=== PATIENT | female | born 1995 | race American Indian/Alaskan Native ===

== ENCOUNTER 2020-03-06 19:07 | Emergency (ER) | payer SELFPAY | END 2020-03-06 21:00 | LOC: ED 19:07 | DX: R10.9 Unspecified abdominal pain (principal); Z53.21 Procedure and treatment not carried out due to patient leaving prior to being seen by health care provider ==

== ENCOUNTER 2020-08-11 17:20 | Outpatient (CLI) | payer MEDICAID ==
[2020-08-11 17:53] VITALS: BP 128/66
[2020-08-11] MEDS ORDERED: TERBUTALINE 1 MG/1 ML INJ SUB-Q SCH (18:00)
[2020-08-11 18:02] LABS: Bacteria,Urine 2+ /HPF (Negative); Bilirubin,Urine NEG (Negative); Blood,Urine NEG (Negative); Color,Urine Yellow (Yellow); Mucus,Urine 2+ /HPF; Urobilinogen,Urine < 2.0 mg/dL (<2.0)
[2020-08-11] MEDS ORDERED: LACTATED RINGERS 1,000 ML IV SCH (18:30)
== END 2020-08-11 20:10 | disposition home or self-care (01) ==
LOC: TRG 17:20 → APU 17:21 → TRG 20:10
PROVIDERS: ATTEND Obstetrics & Gynecology
DX: O62.9 Abnormality of forces of labor, unspecified (principal); O99.323 Drug use complicating pregnancy, third trimester; F12.90 Cannabis use, unspecified, uncomplicated; O99.333 Smoking (tobacco) complicating pregnancy, third trimester; F17.210 Nicotine dependence, cigarettes, uncomplicated; Z3A.32 32 weeks gestation of pregnancy
CPT/HCPCS: 36415; 59025; 81001; 82731; 87086; 96360; 96361; 96372; J3105; J7120

== ENCOUNTER 2020-08-19 12:55 | Outpatient (CLI) | payer MEDICAID ==
[2020-08-19 13:29] VITALS: BP 137/80
--- NOTE | 2020-08-19 17:41 | Ultrasound Report ---
ULTRASOUND BIOPHYSICAL PROFILE INDICATION / CLINICAL INFORMATION: evaluate well being. COMPARISON: None available. FINDINGS: BREATHING MOVEMENT = 2 GROSS BODY MOVEMENT = 2 TONE = 2 QUALITATIVE AMNIOTIC FLUID VOLUME = 2 TOTAL BIOPHYSICAL SCORE = 12/02 AMNIOTIC FLUID INDEX (cm) = not measured PRESENTATION: Cephalic. HEART RATE (beats per minute): 149 IMPRESSION: 1. biophysical profile = 12/02 Signer Name: Jesika Bruner MD Signed: 08/19/2020 5:37 PM Workstation Name: [id number]
== END 2020-08-19 16:16 | disposition home or self-care (01) ==
LOC: TRG 12:55 → APU 12:57 → TRG 16:16
PROVIDERS: ATTEND Obstetrics & Gynecology
DX: O36.8130 Decreased fetal movements, third trimester, not applicable or unspecified (principal); Z3A.33 33 weeks gestation of pregnancy
CPT/HCPCS: 59025; 76819

== ENCOUNTER 2020-09-29 19:03 | Inpatient (IN) | payer MEDICAID ==
[2020-09-29] MEDS ORDERED: NalbUPHINE 10 MG/1 ML INJ IV PRN ×2 (19:33→22:33)
[2020-09-29] MEDS ORDERED: MINERAL OIL 30 ML ORAL LIQD PO PRN (19:33)
[2020-09-29] MEDS ORDERED: fentaNYL 100 MCG/2 ML INJ IV PRN (19:33)
[2020-09-29] MEDS ORDERED: ACETAMINOPHEN 325 MG TAB PO PRN (19:33)
[2020-09-29] MEDS ORDERED: LIDOCAINE (2%) 20 MG/1 ML VIAL 20 ML MDV INFILTRATI ONE (19:33)
[2020-09-29] MEDS ORDERED: TERBUTALINE 1 MG/1 ML INJ SUB-Q PRN (19:33)
[2020-09-29] MEDS ORDERED: ePHEDrine SULFATE 50 MG/1 ML INJ IV PRN (19:33)
[2020-09-29] MEDS ORDERED: AMPICILLIN/NS 2 GM/100 ML 2 GM/100 ML BAG IV ONE (19:33)
--- NOTE | 2020-09-29 19:59 | History and Physical Report ---
History of Present Illness Date of examination: 09/29/20 Chief complaint: SROM and ctx History of present illness: EDC Confirmation: 10/02/2020 Past History : 2 Term Births: 1 Premature Births: 0 Living Children: 1 Para: 1 Mult. Births: 0 Prev : 0 Aborta: 0 Elect. Ab: 0 Spont. Ab: 0 Ectopics: 0 # 1 Delivery date: 06/21/2010 Weeks Gestation: Term labor: no Delivery type: Delivery location: [place] Infant Sex: Male weight: 5-12 Comments: Had issues with pelvic pain and could not stand. 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 % Sun Exposure: rarely Dietary Counseling: pn yes PAP Smear History: Date of Last PAP Smear: 05/15/2015 Results: Normal, per pt Past Medical History: Reviewed history and no changes required: Negative Past Medical History Past Surgical History: Reviewed history and no changes required: negative Past Medical History Anesthesia Complications: negative Anemia: negative Autoimmune Disorder: negative Bleeding Disorder: negative Blood Transfusions: negative Breast Disease: negative Diabetes: negative Heart Disease: negative Hypertension: negative Hepatitis/Liver Disease: negative Kidney Disease/UTI: negative Neurologic/Epilepsy/Migraines: negative Phlebitis/Varicosities: negative Psychiatric: negative Pulmonary Disease/Asthma: negative Thyroid Disease: negative Hospitalizations: negative 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 of genital herpes: no Partner hx. of genital herpes: no Rash, Viral, or Febrile illness since last LMP? no Varicella/Chicken Pox Status: Previous Disease TB Risk: no Genetic History Congenital Heart Defect: Mom: no Dad: no John Disease: Mom: no Dad: no Thalassemia Mom: no Dad: no Neural Tube Defect Mom: no Dad: no Down's Syndrome Mom: no Dad: no Fahad-Sachs Mom: no Dad: no Sickle Cell Disease/Trait Mom: no Dad: no Hemophilia Mom: no Dad: no Muscular Dystrophy Mom: no Dad: no Cystic Fibrosis Mom: no Dad: no [place] Chorea Mom: no Dad: no Mental Retardation Mom: no Dad: no Fragile X Mom: no Dad: no Other Genetic/Chromosomal Disorder Mom: no Dad: no Child w/other defect Mom: no Dad: no Enviromental Exposures Xray Exposure: no Medication, drug, or alcohol use since LMP: yes Chemical/Other Exposure: no Exposure to Cat Liter: no Hx of Parvovirus (Fifth Disease): no Occupational Exposure to Children: none Current Allergies (reviewed today): * SEAFOOD (Critical) Past History Past Medical History: other (see HPI) Past Surgical History: other (see HPI) 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) Family/Genetic History: other (see HPI) - Obstetrical History Expected Date of Delivery: 10/02/20 Actual Gestation: 39 Week(s) 4 Day(s) : 2 Para: 1 Hx # Term Pregnancies: 1 Number of Pregnancies: 0 Spontaneous Abortions: 0 Induced : 0 Number of Living Children: 1 Medications and Allergies Allergies Allergy/AdvReac Type Severity Reaction Status Date / Time shellfish derived Allergy Anaphylaxis Verified 03/06/20 20:17 Active Meds: Active Medications Acetaminophen (Acetaminophen 325 Mg Tab) 650 mg PO Q4H PRN PRN Reason: Pain, Mild (1-3) Ephedrine Sulfate (Ephedrine Sulfate 50 Mg/1 Ml Inj) 10 mg IV Q2M PRN PRN Reason: Hypotension Fentanyl (Fentanyl 100 Mcg/2 Ml Inj) 100 mcg IV Q2H PRN PRN Reason: Pain,Severe (7-10) LABOR PAIN Oxytocin/Sodium Chloride (Pitocin/Ns 30 Unit/500ml) 30 units in 500 mls @ 2 mls/hr IV TITR ALO; Protocol Lactated Ringer's (Lactated Ringers) 1,000 mls @ 125 mls/hr IV DIRECT ALO Oxytocin/Sodium Chloride (Pitocin/Ns 30 Unit/500ml) 30 units in 500 mls @ 40 mls/hr IV TITR ALO; Protocol Ampicillin Sodium (Ampicillin/Ns 2 Gm/100 Ml) 2 gm in 100 mls @ 100 mls/hr IV ONCE ONE; Protocol Stop: 09/29/20 20:32 Ampicillin Sodium (Ampicillin/Ns 1 Gm/50 Ml) 1 gm in 50 mls @ 100 mls/hr IV Q4H ALO; Protocol Mineral Oil (Mineral Oil 30 Ml Oral Liqd) 30 ml PO QHS PRN PRN Reason: Constipation Nalbuphine HCl (Nalbuphine 10 Mg/1 Ml Inj) 10 mg IV Q2H PRN PRN Reason: Pain, Moderate (4-6) Ondansetron HCl (Ondansetron 4 Mg/2 Ml Inj) 4 mg IV Q8H PRN PRN Reason: Nausea And Vomiting Terbutaline Sulfate (Terbutaline 1 Mg/1 Ml Inj) 0.25 mg SUB-Q ONCE PRN PRN Reason: Hyperstimulation/Hypertonicity Review of Systems All systems: negative - Vital Signs Vital signs: Vital Signs Pulse BP 77 139/84 09/29/20 19:13 09/29/20 19:13 Temp Pulse Resp BP Pulse Ox 77 139/84 09/29/20 19:13 09/29/20 19:13 - Physical Exam Breasts: Positive: normal Cardiovascular: Regular rate Lungs: Positive: Clear to auscultation, Normal air movement Abdomen: Positive: normal appearance, soft Genitourinary (Female): Positive: normal external genitalia, normal perenium Vulva: both: normal Vagina: Positive: normal moisture Uterus: Positive: normal size, normal contour Extremities: Positive: normal Deep Tendon Reflex Grade: Normal +2 - Obstetrical FHR: category 1 Uterine Contraction Monitor Mode: External Cervical Dilatation: 2 (by visitor services coordinator) Uterine Contraction Pattern: Regular Uterine Tone Measurement Phase: Contraction Uterine Contraction Intensity: Moderate Results All other labs normal. Assessment and Plan 25y/o @ 39+4 by 2nd trimester u/s @ 22wks, presented with SROM- mec fluid and ctx rates 9/10 on the pain scale. GBS +. - Patient Problems (1) H/O trichomonal vaginitis Current Visit: Yes Status: Acute Plan to address problem: + trich /6, treated 09/05, zoya sent / an not yet resulted. (2) Hx of cannabis abuse Current Visit: Yes Status: Acute Plan to address problem: UDS (3) 39 weeks gestation of Current Visit: Yes Status: Acute (4) GBS (group B Streptococcus carrier), +RV culture, currently Current Visit: Yes Status: Acute Plan to address problem: amp q4hr until delivery (5) SROM (spontaneous rupture of membranes) Current Visit: Yes Status: Acute Plan to address problem: mec - NICU present for delivery Limit SVE temp per protocol
[2020-09-29] MEDS ORDERED: OXYTOCIN DRIP 30 UNITS/500 ML BAG IV SCH ×2 (20:00)
[2020-09-29] MEDS: LACTATED RINGERS 1,000 ML IV SCH ×2 (21:20→22:36)
[2020-09-29] MEDS ORDERED: FAMOTIDINE 20 MG/2 ML INJ IV ONE (22:01)
[2020-09-29 22:33] LABS: Hematocrit 34.4 % (30.3-42.9); Hemoglobin 11.3 gm/dl (10.1-14.3); Mean Corpuscular HGB Conc 33 % (30-34); Mean Corpuscular Volume 88 fl (79-97); Platelet Count 236 K/mm3 (140-440); Red Blood Count 3.92 M/mm3 (3.65-5.03); Red Cell Distribution Width 13.5 % (13.2-15.2)
[2020-09-29] MEDS ORDERED: diphenhydrAMINE 50 MG/ML VIAL IV PRN (22:33)
[2020-09-29] MEDS ORDERED: NALOXONE 2 MG/2 ML INJ IV PRN (22:33)
[2020-09-29] MEDS ORDERED: LACTATED RINGERS 250 ML IV SOLN IV ONE (22:33)
--- NOTE | 2020-09-29 23:14 | Anesthesia Consultation ---
Anesthesia Consult and Med Hx Date of service: 09/29/20 - Airway Anesthetic Teeth Evaluation: Good ROM Head & Neck: Adequate Mental/Hyoid Distance: Adequate Mallampati Class: Class II Intubation Access Assessment: Probably Good - Pulmonary Exam CTA: Yes - Cardiac Exam Cardiac Exam: RRR - Pre-Operative Health Status ASA Pre-Surgery Classification: ASA2 Proposed Anesthetic Plan: Epidural - Pulmonary Hx Smoking: Yes Hx Asthma: No Hx Sleep Apnea: No - Cardiovascular System Hx Hypertension: No Hx Heart Attack/AMI: No Hx Angina: No - Central Nervous System Hx Seizures: No Hx Psychiatric Problems: No - Gastrointestinal Hx Gastroesophageal Reflux Disease: No - Endocrine Hx Renal Disease: No Hx Liver Disease: No Hx Insulin Dependent Diabetes: No Hx Non-Insulin Dependent Diabetes: No Hx Hypothyroidism: No Hx Hyperthyroidism: No - Hematic Hx Anemia: No Hx Sickle Cell Disease: No - Other Systems Hx Alcohol Use: No
[2020-09-29] MEDS: fentaNYL-BUPIV 2 MCG/ML-0.125% 200 MCG/100 ML BAG EPIDURAL SCH (23:15)
--- NOTE | 2020-09-29 23:15 | Progress Note ---
Labor Epidural - Labor Epidural Start Time: 22:56 Stop Time: 23:08 Performed by:: TURNER ROTH Procedure: Patient is requesting epidural for labor and pain. H&P, labs were reviewed. Patient IDed, H&P reviewed, all questions and concerns were answered, and consent was signed. Timeout was performed at bedside. Patient in sitting position. Sterile prep and drape was performed. 3ml of 1% lidocaine skin wheal at L[3]- L [4]. 18-gauge werner epidural needle was advanced to loss of resistance with air technique 6cm. Negative CSF negative blood. Epidural catheter advanced to [11] centimeters. [negative] Aspiration [negative] test dose. Sterile dressing applied. Patient tolerated procedure.
[2020-09-30 01:20] LABS: Amphetamine Screen,Urine PRESUMPTIVE NEGATIVE; Benzodiazepines Screen,Urine PRESUMPTIVE NEGATIVE; Cannabinoid Screen,Urine PRESUMPTIVE POSITIVE; Cocaine Screen,Urine PRESUMPTIVE NEGATIVE; Methadone Screen,Urine PRESUMPTIVE NEGATIVE; Opiate Screen,Urine PRESUMPTIVE NEGATIVE
[2020-09-30] MEDS: AMPICILLIN/NS 1 GM/50 ML 1 GM/50 ML BAG IV SCH ×3 (01:24→09:29)
[2020-09-30] MEDS: ONDANSETRON 4 MG/2 ML INJ IV PRN ×2 (01:41→08:05)
[2020-09-30] MEDS: fentaNYL-BUPIV 2 MCG/ML-0.125% 200 MCG/100 ML BAG EPIDURAL SCH (05:52)
--- NOTE | 2020-09-30 06:33 | Progress Note ---
Assessment and Plan Pitocin infusing @ 14, no change in SVE from admission despite regular ctx. IUPC placed without difficulty. Will continue to increase pitocin and monitor for labor progression. Dr. Robbins updated on patient's progress - Patient Problems (1) H/O trichomonal vaginitis Current Visit: Yes Status: Acute (2) Hx of cannabis abuse Current Visit: Yes Status: Acute (3) 39 weeks gestation of Current Visit: Yes Status: Acute (4) GBS (group B Streptococcus carrier), +RV culture, currently Current Visit: Yes Status: Acute (5) SROM (spontaneous rupture of membranes) Current Visit: Yes Status: Acute Subjective - Subjective Date of service: 09/30/20 Principal diagnosis: IUP @ 39+5; SROM 09/29/2020 1100 Interval history: EDC Confirmation: 10/02/2020 Past History : 2 Term Births: 1 Premature Births: 0 Living Children: 1 Para: 1 Mult. Births: 0 Prev : 0 Aborta: 0 Elect. Ab: 0 Spont. Ab: 0 Ectopics: 0 # 1 Delivery date: 06/21/2010 Weeks Gestation: Term labor: no Delivery type: Delivery location: [place] Infant Sex: Male weight: 5-12 Comments: Had issues with pelvic pain and could not stand. 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 % Sun Exposure: rarely Dietary Counseling: pn yes PAP Smear History: Date of Last PAP Smear: 05/15/2015 Results: Normal, per pt Past Medical History: Reviewed history and no changes required: Negative Past Medical History Past Surgical History: Reviewed history and no changes required: negative Past Medical History Anesthesia Complications: negative Anemia: negative Autoimmune Disorder: negative Bleeding Disorder: negative Blood Transfusions: negative Breast Disease: negative Diabetes: negative Heart Disease: negative Hypertension: negative Hepatitis/Liver Disease: negative Kidney Disease/UTI: negative Neurologic/Epilepsy/Migraines: negative Phlebitis/Varicosities: negative Psychiatric: negative Pulmonary Disease/Asthma: negative Thyroid Disease: negative Hospitalizations: negative 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 of genital herpes: no Partner hx. of genital herpes: no Rash, Viral, or Febrile illness since last LMP? no Varicella/Chicken Pox Status: Previous Disease TB Risk: no Genetic History Congenital Heart Defect: Mom: no Dad: no John Disease: Mom: no Dad: no Thalassemia Mom: no Dad: no Neural Tube Defect Mom: no Dad: no Down's Syndrome Mom: no Dad: no Fahad-Sachs Mom: no Dad: no Sickle Cell Disease/Trait Mom: no Dad: no Hemophilia Mom: no Dad: no Muscular Dystrophy Mom: no Dad: no Cystic Fibrosis Mom: no Dad: no Yenifer Chorea Mom: no Dad: no Mental Retardation Mom: no Dad: no Fragile X Mom: no Dad: no Other Genetic/Chromosomal Disorder Mom: no Dad: no Child w/other defect Mom: no Dad: no Enviromental Exposures Xray Exposure: no Medication, drug, or alcohol use since LMP: yes Chemical/Other Exposure: no Exposure to Cat Liter: no Hx of Parvovirus (Fifth Disease): no Occupational Exposure to Children: none Current Allergies (reviewed today): * SEAFOOD (Critical) Patient reports: no new complaints (comfortable with epidural) Objective - Vital Signs Vital Signs: Vital Signs - 12hr 09/29/20 09/29/20 09/29/20 19:13 20:00 22:39 Temperature 98.8 F Pulse Rate 77 77 60 Respiratory 18 Rate Blood Pressure 139/84 136/71 Blood Pressure 139/84 [Right] O2 Sat by Pulse Oximetry 09/29/20 09/29/20 09/29/20 22:48 22:53 22:58 Temperature Pulse Rate 70 81 84 Respiratory Rate Blood Pressure Blood Pressure [Right] O2 Sat by Pulse 99 100 100 Oximetry 09/29/20 09/29/20 09/29/20 23:03 23:05 23:07 Temperature Pulse Rate 88 77 72 Respiratory Rate Blood Pressure 139/80 138/79 Blood Pressure [Right] O2 Sat by Pulse 99 Oximetry 09/29/20 09/29/20 09/29/20 23:08 23:09 23:11 Temperature Pulse Rate 78 63 65 Respiratory Rate Blood Pressure 138/79 141/84 Blood Pressure [Right] O2 Sat by Pulse 98 Oximetry 09/29/20 09/29/20 09/29/20 23:13 23:14 23:16 Temperature Pulse Rate 75 74 87 Respiratory Rate Blood Pressure 120/57 134/73 Blood Pressure [Right] O2 Sat by Pulse 99 Oximetry 09/29/20 09/29/20 09/29/20 23:17 23:18 23:19 Temperature Pulse Rate 85 90 78 Respiratory Rate Blood Pressure 137/68 127/62 Blood Pressure [Right] O2 Sat by Pulse 99 Oximetry 09/29/20 09/29/20 09/29/20 23:21 23:23 23:28 Temperature Pulse Rate 67 66 88 Respiratory Rate Blood Pressure 122/60 110/55 Blood Pressure [Right] O2 Sat by Pulse 99 99 Oximetry 09/29/20 09/29/20 09/29/20 23:33 23:38 23:41 Temperature Pulse Rate 72 66 74 Respiratory Rate Blood Pressure 106/53 Blood Pressure [Right] O2 Sat by Pulse 97 97 Oximetry 09/29/20 09/29/20 09/29/20 23:43 23:48 23:53 Temperature 98 F Pulse Rate 87 73 68 Respiratory Rate Blood Pressure Blood Pressure [Right] O2 Sat by Pulse 96 96 96 Oximetry 09/29/20 09/29/20 09/30/20 23:56 23:58 00:01 Temperature Pulse Rate 80 70 58 L Respiratory Rate Blood Pressure 95/49 Blood Pressure [Right] O2 Sat by Pulse 96 93 Oximetry 09/30/20 09/30/20 09/30/20 00:03 00:06 00:08 Temperature Pulse Rate 77 64 89 Respiratory Rate Blood Pressure 104/51 Blood Pressure [Right] O2 Sat by Pulse 98 97 Oximetry 09/30/20 09/30/20 09/30/20 00:13 00:18 00:23 Temperature Pulse Rate 71 80 59 L Respiratory Rate Blood Pressure Blood Pressure [Right] O2 Sat by Pulse 97 96 97 Oximetry 09/30/20 09/30/20 09/30/20 00:28 00:33 00:36 Temperature Pulse Rate 60 63 62 Respiratory Rate Blood Pressure 89/44 Blood Pressure [Right] O2 Sat by Pulse 97 96 Oximetry 09/30/20 09/30/20 09/30/20 00:38 00:43 00:44 Temperature Pulse Rate 77 78 100 H Respiratory Rate Blood Pressure 89/42 117/61 Blood Pressure [Right] O2 Sat by Pulse 98 97 Oximetry 09/30/20 09/30/20 09/30/20 00:48 00:53 00:58 Temperature Pulse Rate 63 82 83 Respiratory Rate Blood Pressure Blood Pressure [Right] O2 Sat by Pulse 98 97 96 Oximetry 09/30/20 09/30/20 09/30/20 01:03 01:07 01:08 Temperature Pulse Rate 62 71 75 Respiratory Rate Blood Pressure 109/55 Blood Pressure [Right] O2 Sat by Pulse 99 99 Oximetry 09/30/20 09/30/20 09/30/20 01:13 01:18 01:23 Temperature Pulse Rate 85 100 H 69 Respiratory Rate Blood Pressure Blood Pressure [Right] O2 Sat by Pulse 98 99 99 Oximetry 09/30/20 09/30/20 09/30/20 01:28 01:33 01:37 Temperature Pulse Rate 75 71 113 H Respiratory Rate Blood Pressure 180/101 Blood Pressure [Right] O2 Sat by Pulse 100 98 Oximetry 09/30/20 09/30/20 09/30/20 01:38 01:41 01:43 Temperature Pulse Rate 94 H 99 H 75 Respiratory Rate Blood Pressure 139/60 Blood Pressure [Right] O2 Sat by Pulse 99 98 Oximetry 09/30/20 09/30/20 09/30/20 01:48 01:53 01:58 Temperature Pulse Rate 73 85 70 Respiratory Rate Blood Pressure Blood Pressure [Right] O2 Sat by Pulse 97 96 97 Oximetry 09/30/20 09/30/20 09/30/20 02:02 02:03 02:08 Temperature 97.8 F Pulse Rate 63 74 Respiratory 17 Rate Blood Pressure 100/53 Blood Pressure [Right] O2 Sat by Pulse 98 98 Oximetry 09/30/20 09/30/20 09/30/20 02:13 02:18 02:23 Temperature Pulse Rate 70 81 69 Respiratory Rate Blood Pressure Blood Pressure [Right] O2 Sat by Pulse 97 94 97 Oximetry 09/30/20 09/30/20 09/30/20 02:28 02:33 02:38 Temperature Pulse Rate 67 67 81 Respiratory Rate Blood Pressure Blood Pressure [Right] O2 Sat by Pulse 97 98 97 Oximetry 09/30/20 09/30/20 09/30/20 02:43 02:47 02:48 Temperature Pulse Rate 66 82 85 Respiratory Rate Blood Pressure Blood Pressure [Right] O2 Sat by Pulse 97 94 96 Oximetry 09/30/20 09/30/20 09/30/20 02:53 02:58 03:03 Temperature Pulse Rate 64 71 71 Respiratory Rate Blood Pressure Blood Pressure [Right] O2 Sat by Pulse 97 98 96 Oximetry 09/30/20 09/30/20 09/30/20 03:08 03:13 03:18 Temperature Pulse Rate 80 68 73 Respiratory Rate Blood Pressure Blood Pressure [Right] O2 Sat by Pulse 97 97 97 Oximetry 09/30/20 09/30/20 09/30/20 03:23 03:28 03:32 Temperature Pulse Rate 71 71 75 Respiratory Rate Blood Pressure 115/68 Blood Pressure [Right] O2 Sat by Pulse 98 99 Oximetry 09/30/20 09/30/20 09/30/20 03:33 03:38 03:42 Temperature 98.1 F Pulse Rate 62 63 Respiratory Rate Blood Pressure Blood Pressure [Right] O2 Sat by Pulse 99 99 Oximetry 09/30/20 09/30/20 09/30/20 03:43 03:48 03:53 Temperature Pulse Rate 71 64 60 Respiratory Rate Blood Pressure Blood Pressure [Right] O2 Sat by Pulse 97 98 100 Oximetry 09/30/20 09/30/20 09/30/20 03:58 04:03 04:08 Temperature Pulse Rate 60 89 71 Respiratory Rate Blood Pressure Blood Pressure [Right] O2 Sat by Pulse 99 100 99 Oximetry 09/30/20 09/30/20 09/30/20 04:13 04:18 04:23 Temperature Pulse Rate 79 79 105 H Respiratory Rate Blood Pressure Blood Pressure [Right] O2 Sat by Pulse 99 99 100 Oximetry 09/30/20 09/30/20 09/30/20 04:28 04:33 04:38 Temperature Pulse Rate 78 98 H 100 H Respiratory Rate Blood Pressure Blood Pressure [Right] O2 Sat by Pulse 97 98 99 Oximetry 09/30/20 09/30/20 09/30/20 04:43 04:48 04:53 Temperature Pulse Rate 118 H 81 126 H Respiratory Rate Blood Pressure Blood Pressure [Right] O2 Sat by Pulse 99 99 99 Oximetry 09/30/20 09/30/20 09/30/20 04:58 05:03 05:08 Temperature Pulse Rate 72 99 H 80 Respiratory Rate Blood Pressure Blood Pressure [Right] O2 Sat by Pulse 98 100 99 Oximetry 09/30/20 09/30/20 09/30/20 05:13 05:18 05:23 Temperature Pulse Rate 70 72 70 Respiratory Rate Blood Pressure Blood Pressure [Right] O2 Sat by Pulse 97 96 96 Oximetry 09/30/20 09/30/20 09/30/20 05:28 05:30 05:33 Temperature Pulse Rate 64 62 65 Respiratory Rate Blood Pressure 115/57 Blood Pressure [Right] O2 Sat by Pulse 98 97 Oximetry 09/30/20 09/30/20 09/30/20 05:38 05:43 05:48 Temperature Pulse Rate 65 64 82 Respiratory Rate Blood Pressure Blood Pressure [Right] O2 Sat by Pulse 97 97 98 Oximetry 09/30/20 09/30/20 09/30/20 05:53 05:58 06:03 Temperature Pulse Rate 69 64 65 Respiratory Rate Blood Pressure Blood Pressure [Right] O2 Sat by Pulse 95 96 95 Oximetry 09/30/20 09/30/20 09/30/20 06:08 06:09 06:13 Temperature Pulse Rate 65 66 65 Respiratory Rate Blood Pressure Blood Pressure [Right] O2 Sat by Pulse 95 94 96 Oximetry 09/30/20 09/30/20 06:17 06:18 Temperature Pulse Rate 88 65 Respiratory Rate Blood Pressure Blood Pressure [Right] O2 Sat by Pulse 94 100 Oximetry - Exam Breasts: normal Cardiovascular: Regular rate Lungs: Clear to auscultation, Normal air movement Abdomen: Present: normal appearance, soft Vulva: both: normal Uterus: Present: normal, firm FHR: auscultation normal Uterine Contraction Monitor Mode: Internal Cervical Dilatation: 2.5 Cervical Effacement Percentage: 60 station: -3 Uterine Contraction Frequency (min): 3 Uterine Contraction Duration: 60 Uterine Contraction Pattern: Regular Uterine Tone Measurement Phase: Contraction Uterine Contraction Intensity: Strong/Firm Extremities: normal Deep Tendon Reflex Grade: Normal +2 - Labs Labs: Laboratory Results - last 24 hr 09/29/20 09/29/20 09/29/20 22:09 22:09 22:09 WBC 10.3 RBC 3.92 Hgb 11.3 Hct 34.4 MCV 88 MCH 29 MCHC 33 RDW 13.5 Plt Count 236 Urine Opiates Screen Urine Methadone Screen Ur Barbiturates Screen Ur Phencyclidine Scrn Ur Amphetamines Screen U Benzodiazepines Scrn Urine Cocaine Screen U Marijuana (THC) Screen Drugs of Abuse Note Syphilis IgG Antibody Nonreactive Rubella IgG Antibody Blood Type B POSITIVE Antibody Screen Negative 09/29/20 09/30/20 22:09 00:45 WBC RBC Hgb Hct MCV MCH MCHC RDW Plt Count Urine Opiates Screen Presumptive negative Urine Methadone Screen Presumptive negative Ur Barbiturates Screen Presumptive negative Ur Phencyclidine Scrn Presumptive negative Ur Amphetamines Screen Presumptive negative U Benzodiazepines Scrn Presumptive negative Urine Cocaine Screen Presumptive negative U Marijuana (THC) Screen Presumptive positive Drugs of Abuse Note Disclamer Syphilis IgG Antibody Rubella IgG Antibody Immune Blood Type Antibody Screen
[2020-09-30] MEDS ORDERED: BICITRA ORAL LIQD 30ML PO ONE (10:26)
[2020-09-30] MEDS ORDERED: FAMOTIDINE 20 MG/2 ML INJ IV ONE (10:26)
[2020-09-30] MEDS ORDERED: METOCLOPRAMIDE 10 MG/2 ML INJ IV ONE (10:26)
--- NOTE | 2020-09-30 10:26 | Progress Note ---
Assessment and Plan no change in SVE from last exam, baby remains -3. Discussed with patient concern over SROM >24hr(mec fluid, GBS), lack of decent despite hours of adequate labor and fht decels, both late and early. Patient feels this baby is bigger than her first. She agrees to proceed with primary c/s. Dr. Robbins updated and in route. consent signed. - Patient Problems (1) H/O trichomonal vaginitis Current Visit: Yes Status: Acute (2) Hx of cannabis abuse Current Visit: Yes Status: Acute (3) 39 weeks gestation of Onset Date: ~09/29/20 Current Visit: Yes Status: Acute (4) GBS (group B Streptococcus carrier), +RV culture, currently Current Visit: Yes Status: Acute (5) SROM (spontaneous rupture of membranes) Current Visit: Yes Status: Acute Subjective - Subjective Date of service: 09/30/20 Principal diagnosis: IUP @ 39+5; SROM 09/29/2020 1100 Interval history: EDC Confirmation: 10/02/2020 Past History : 2 Term Births: 1 Premature Births: 0 Living Children: 1 Para: 1 Mult. Births: 0 Prev : 0 Aborta: 0 Elect. Ab: 0 Spont. Ab: 0 Ectopics: 0 # 1 Delivery date: 06/21/2010 Weeks Gestation: Term labor: no Delivery type: Delivery location: [place] Sex: Male weight: 5-12 Comments: Had issues with pelvic pain and could not stand. Risk Factors: Smoked Tobacco Use: Current every day smoker Cigarettes: Yes -- 3 sticks daily pack(s) per day, Year started: age 17 Smokeless Tobacco Use: Never Counseled to quit/cut down: yes Passive smoke exposure: no Drug use: yes Substance: marijuana Comments: often HIV high-risk behavior: no Caffeine use: <1 drinks per day Alcohol use: no Exercise: no Seatbelt use: preg-awake overnight counselor % Sun Exposure: rarely Dietary Counseling: pn yes PAP Smear History: Date of Last PAP Smear: 05/15/2015 Results: Normal, per pt Past Medical History: Reviewed history and no changes required: Negative Past Medical History Past Surgical History: Reviewed history and no changes required: negative Past Medical History Anesthesia Complications: negative Anemia: negative Autoimmune Disorder: negative Bleeding Disorder: negative Blood Transfusions: negative Breast Disease: negative Diabetes: negative Heart Disease: negative Hypertension: negative Hepatitis/Liver Disease: negative Kidney Disease/UTI: negative Neurologic/Epilepsy/Migraines: negative Phlebitis/Varicosities: negative Psychiatric: negative Pulmonary Disease/Asthma: negative Thyroid Disease: negative Hospitalizations: negative Surgery (Non-md do resident urgent care): 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 of genital herpes: no Partner hx. of genital herpes: no Rash, Viral, or Febrile illness since last LMP? no Varicella/Chicken Pox Status: Previous Disease TB Risk: no Genetic History Congenital Heart Defect: Mom: no Dad: no John Disease: Mom: no Dad: no Thalassemia Mom: no Dad: no Neural Tube Defect Mom: no Dad: no Down's Syndrome Mom: no Dad: no Fahad-Sachs Mom: no Dad: no Sickle Cell Disease/Trait Mom: no Dad: no Hemophilia Mom: no Dad: no Muscular Dystrophy Mom: no Dad: no Cystic Fibrosis Mom: no Dad: no Yenifer Chorea Mom: no Dad: no Mental Retardation Mom: no Dad: no Fragile X Mom: no Dad: no Other Genetic/Chromosomal Disorder Mom: no Dad: no Child w/other defect Mom: no Dad: no Enviromental Exposures Xray Exposure: no Medication, drug, or alcohol use since LMP: yes Chemical/Other Exposure: no Exposure to Cat Liter: no Hx of Parvovirus (Fifth Disease): no Occupational Exposure to Children: none Current Allergies (reviewed today): * SEAFOOD (Critical) Patient reports: no new complaints (comfortable with epidural) Objective - Vital Signs Vital Signs: Vital Signs - 12hr 09/29/20 09/29/20 09/29/20 22:39 22:48 22:53 Temperature Pulse Rate 60 70 81 Respiratory Rate Blood Pressure 136/71 O2 Sat by Pulse 99 100 Oximetry 09/29/20 09/29/20 09/29/20 22:58 23:03 23:05 Temperature Pulse Rate 84 88 77 Respiratory Rate Blood Pressure 139/80 O2 Sat by Pulse 100 99 Oximetry 09/29/20 09/29/20 09/29/20 23:07 23:08 23:09 Temperature Pulse Rate 72 78 63 Respiratory Rate Blood Pressure 138/79 138/79 O2 Sat by Pulse 98 Oximetry 09/29/20 09/29/20 09/29/20 23:11 23:13 23:14 Temperature Pulse Rate 65 75 74 Respiratory Rate Blood Pressure 141/84 120/57 O2 Sat by Pulse 99 Oximetry 09/29/20 09/29/20 09/29/20 23:16 23:17 23:18 Temperature Pulse Rate 87 85 90 Respiratory Rate Blood Pressure 134/73 137/68 O2 Sat by Pulse 99 Oximetry 09/29/20 09/29/20 09/29/20 23:19 23:21 23:23 Temperature Pulse Rate 78 67 66 Respiratory Rate Blood Pressure 127/62 122/60 110/55 O2 Sat by Pulse 99 Oximetry 09/29/20 09/29/20 09/29/20 23:28 23:33 23:38 Temperature Pulse Rate 88 72 66 Respiratory Rate Blood Pressure O2 Sat by Pulse 99 97 97 Oximetry 09/29/20 09/29/20 09/29/20 23:41 23:43 23:48 Temperature 98 F Pulse Rate 74 87 73 Respiratory Rate Blood Pressure 106/53 O2 Sat by Pulse 96 96 Oximetry 09/29/20 09/29/20 09/29/20 23:53 23:56 23:58 Temperature Pulse Rate 68 80 70 Respiratory Rate Blood Pressure 95/49 O2 Sat by Pulse 96 96 Oximetry 09/30/20 09/30/20 09/30/20 00:01 00:03 00:06 Temperature Pulse Rate 58 L 77 64 Respiratory Rate Blood Pressure 104/51 O2 Sat by Pulse 93 98 Oximetry 09/30/20 09/30/20 09/30/20 00:08 00:13 00:18 Temperature Pulse Rate 89 71 80 Respiratory Rate Blood Pressure O2 Sat by Pulse 97 97 96 Oximetry 09/30/20 09/30/20 09/30/20 00:23 00:28 00:33 Temperature Pulse Rate 59 L 60 63 Respiratory Rate Blood Pressure O2 Sat by Pulse 97 97 96 Oximetry 09/30/20 09/30/20 09/30/20 00:36 00:38 00:43 Temperature Pulse Rate 62 77 78 Respiratory Rate Blood Pressure 89/44 89/42 O2 Sat by Pulse 98 97 Oximetry 0609/30/20 09/30/20 00:44 00:48 00:53 Temperature Pulse Rate 100 H 63 82 Respiratory Rate Blood Pressure 117/61 O2 Sat by Pulse 98 97 Oximetry 09/30/20 09/30/20 09/30/20 00:58 01:03 01:07 Temperature Pulse Rate 83 62 71 Respiratory Rate Blood Pressure 109/55 O2 Sat by Pulse 96 99 Oximetry 09/30/20 09/30/20 09/30/20 01:08 01:13 01:18 Temperature Pulse Rate 75 85 100 H Respiratory Rate Blood Pressure O2 Sat by Pulse 99 98 99 Oximetry 09/30/20 09/30/20 09/30/20 01:23 01:28 01:33 Temperature Pulse Rate 69 75 71 Respiratory Rate Blood Pressure O2 Sat by Pulse 99 100 98 Oximetry 09/30/20 09/30/20 09/30/20 01:37 01:38 01:41 Temperature Pulse Rate 113 H 94 H 99 H Respiratory Rate Blood Pressure 180/101 139/60 O2 Sat by Pulse 99 Oximetry 09/30/20 09/30/20 09/30/20 01:43 01:48 01:53 Temperature Pulse Rate 75 73 85 Respiratory Rate Blood Pressure O2 Sat by Pulse 98 97 96 Oximetry 09/30/20 09/30/20 09/30/20 01:58 02:02 02:03 Temperature 97.8 F Pulse Rate 70 63 Respiratory 17 Rate Blood Pressure O2 Sat by Pulse 97 98 Oximetry 09/30/20 09/30/20 09/30/20 02:08 02:13 02:18 Temperature Pulse Rate 74 70 81 Respiratory Rate Blood Pressure 100/53 O2 Sat by Pulse 98 97 94 Oximetry 09/30/20 09/30/20 09/30/20 02:23 02:28 02:33 Temperature Pulse Rate 69 67 67 Respiratory Rate Blood Pressure O2 Sat by Pulse 97 97 98 Oximetry 09/30/20 09/30/20 09/30/20 02:38 02:43 02:47 Temperature Pulse Rate 81 66 82 Respiratory Rate Blood Pressure O2 Sat by Pulse 97 97 94 Oximetry 09/30/20 09/30/20 09/30/20 02:48 02:53 02:58 Temperature Pulse Rate 85 64 71 Respiratory Rate Blood Pressure O2 Sat by Pulse 96 97 98 Oximetry 09/30/20 09/30/20 09/30/20 03:03 03:08 03:13 Temperature Pulse Rate 71 80 68 Respiratory Rate Blood Pressure O2 Sat by Pulse 96 97 97 Oximetry 09/30/20 09/30/20 09/30/20 03:18 03:23 03:28 Temperature Pulse Rate 73 71 71 Respiratory Rate Blood Pressure O2 Sat by Pulse 97 98 99 Oximetry 09/30/20 09/30/20 09/30/20 03:32 03:33 03:38 Temperature Pulse Rate 75 62 63 Respiratory Rate Blood Pressure 115/68 O2 Sat by Pulse 99 99 Oximetry 09/30/20 09/30/20 09/30/20 03:42 03:43 03:48 Temperature 98.1 F Pulse Rate 71 64 Respiratory Rate Blood Pressure O2 Sat by Pulse 97 98 Oximetry 09/30/20 09/30/20 09/30/20 03:53 03:58 04:03 Temperature Pulse Rate 60 60 89 Respiratory Rate Blood Pressure O2 Sat by Pulse 100 99 100 Oximetry 09/30/20 09/30/20 09/30/20 04:08 04:13 04:18 Temperature Pulse Rate 71 79 79 Respiratory Rate Blood Pressure O2 Sat by Pulse 99 99 99 Oximetry 09/30/20 09/30/20 09/30/20 04:23 04:28 04:33 Temperature Pulse Rate 105 H 78 98 H Respiratory Rate Blood Pressure O2 Sat by Pulse 100 97 98 Oximetry 09/30/20 09/30/20 09/30/20 04:38 04:43 04:48 Temperature Pulse Rate 100 H 118 H 81 Respiratory Rate Blood Pressure O2 Sat by Pulse 99 99 99 Oximetry 09/30/20 09/30/20 09/30/20 04:53 04:58 05:03 Temperature Pulse Rate 126 H 72 99 H Respiratory Rate Blood Pressure O2 Sat by Pulse 99 98 100 Oximetry 09/30/20 09/30/20 09/30/20 05:08 05:13 05:18 Temperature Pulse Rate 80 70 72 Respiratory Rate Blood Pressure O2 Sat by Pulse 99 97 96 Oximetry 09/30/20 09/30/20 09/30/20 05:23 05:28 05:30 Temperature Pulse Rate 70 64 62 Respiratory Rate Blood Pressure 115/57 O2 Sat by Pulse 96 98 Oximetry 09/30/20 09/30/20 09/30/20 05:33 05:38 05:43 Temperature Pulse Rate 65 65 64 Respiratory Rate Blood Pressure O2 Sat by Pulse 97 97 97 Oximetry 09/30/20 09/30/20 09/30/20 05:48 05:53 05:58 Temperature Pulse Rate 82 69 64 Respiratory Rate Blood Pressure O2 Sat by Pulse 98 95 96 Oximetry 09/30/20 09/30/20 09/30/20 06:03 06:08 06:09 Temperature Pulse Rate 65 65 66 Respiratory Rate Blood Pressure O2 Sat by Pulse 95 95 94 Oximetry 09/30/20 09/30/20 09/30/20 06:13 06:17 06:18 Temperature Pulse Rate 65 88 65 Respiratory Rate Blood Pressure O2 Sat by Pulse 96 94 100 Oximetry 09/30/20 09/30/20 09/30/20 06:23 06:28 06:32 Temperature Pulse Rate 63 63 61 Respiratory Rate Blood Pressure 109/56 O2 Sat by Pulse 98 97 Oximetry 09/30/20 09/30/20 09/30/20 06:33 06:38 06:43 Temperature Pulse Rate 64 63 65 Respiratory Rate Blood Pressure O2 Sat by Pulse 98 97 98 Oximetry 09/30/20 09/30/20 09/30/20 06:48 06:53 06:58 Temperature Pulse Rate 64 71 66 Respiratory Rate Blood Pressure O2 Sat by Pulse 98 97 96 Oximetry 09/30/20 09/30/20 09/30/20 07:03 07:08 07:13 Temperature 98 F Pulse Rate 61 70 74 Respiratory 18 Rate Blood Pressure O2 Sat by Pulse 98 100 100 Oximetry 09/30/20 09/30/20 09/30/20 07:18 07:23 07:28 Temperature Pulse Rate 74 70 65 Respiratory Rate Blood Pressure O2 Sat by Pulse 99 100 100 Oximetry 09/30/20 09/30/20 09/30/20 07:30 07:33 07:38 Temperature Pulse Rate 61 67 67 Respiratory Rate Blood Pressure 137/84 O2 Sat by Pulse 99 99 Oximetry 09/30/20 09/30/20 09/30/20 07:43 07:48 07:53 Temperature Pulse Rate 74 82 82 Respiratory Rate Blood Pressure O2 Sat by Pulse 97 98 98 Oximetry 09/30/20 09/30/20 09/30/20 07:58 08:03 08:08 Temperature Pulse Rate 66 69 78 Respiratory Rate Blood Pressure O2 Sat by Pulse 100 99 98 Oximetry 0609/30/20 09/30/20 08:13 08:18 08:23 Temperature Pulse Rate 80 61 69 Respiratory Rate Blood Pressure O2 Sat by Pulse 99 100 99 Oximetry 09/30/20 09/30/20 09/30/20 08:28 08:31 08:33 Temperature Pulse Rate 63 68 65 Respiratory Rate Blood Pressure 140/79 O2 Sat by Pulse 99 98 Oximetry 09/30/20 09/30/20 09/30/20 08:38 08:43 08:48 Temperature Pulse Rate 72 72 67 Respiratory Rate Blood Pressure O2 Sat by Pulse 99 97 98 Oximetry 09/30/20 09/30/20 09/30/20 08:53 08:58 09:03 Temperature Pulse Rate 67 61 60 Respiratory Rate Blood Pressure O2 Sat by Pulse 99 100 100 Oximetry 09/30/20 09/30/20 09/30/20 09:08 09:13 09:18 Temperature Pulse Rate 59 L 66 68 Respiratory Rate Blood Pressure O2 Sat by Pulse 100 98 99 Oximetry 09/30/20 09/30/20 09/30/20 09:23 09:28 09:30 Temperature Pulse Rate 80 81 75 Respiratory Rate Blood Pressure 130/76 O2 Sat by Pulse 97 97 Oximetry 09/30/20 09/30/20 09/30/20 09:33 09:38 09:43 Temperature Pulse Rate 68 69 65 Respiratory Rate Blood Pressure O2 Sat by Pulse 100 98 98 Oximetry 09/30/20 09/30/20 09/30/20 09:48 09:53 09:58 Temperature 98 F Pulse Rate 59 L 67 89 Respiratory Rate Blood Pressure O2 Sat by Pulse 100 99 99 Oximetry 09/30/20 09/30/20 09/30/20 10:03 10:08 10:13 Temperature Pulse Rate 97 H 94 H 91 H Respiratory Rate Blood Pressure O2 Sat by Pulse 98 97 98 Oximetry 09/30/20 09/30/20 10:18 10:23 Temperature Pulse Rate 71 83 Respiratory Rate Blood Pressure O2 Sat by Pulse 99 99 Oximetry - Exam Cardiovascular: Regular rate Lungs: Normal air movement Abdomen: Present: soft Vulva: both: normal Uterus: Present: normal, fundal height above umbilicus FHR: category 2 Uterine Contraction Monitor Mode: Internal Cervical Dilatation: 5 Cervical Effacement Percentage: 60 station: -3 Uterine Contraction Frequency (min): 2-3 Uterine Contraction Pattern: Regular Uterine Tone Measurement Phase: Contraction Uterine Contraction Intensity: Strong/Firm Extremities: normal Deep Tendon Reflex Grade: Normal +2 - Labs Labs: Laboratory Results - last 24 hr 09/29/20 09/29/20 09/29/20 22:09 22:09 22:09 WBC 10.3 RBC 3.92 Hgb 11.3 Hct 34.4 MCV 88 MCH 29 MCHC 33 RDW 13.5 Plt Count 236 Urine Opiates Screen Urine Methadone Screen Ur Barbiturates Screen Ur Phencyclidine Scrn Ur Amphetamines Screen U Benzodiazepines Scrn Urine Cocaine Screen U Marijuana (THC) Screen Drugs of Abuse Note Syphilis IgG Antibody Nonreactive Rubella IgG Antibody Blood Type B POSITIVE Antibody Screen Negative 09/29/20 09/30/20 22:09 00:45 WBC RBC Hgb Hct MCV MCH MCHC RDW Plt Count Urine Opiates Screen Presumptive negative Urine Methadone Screen Presumptive negative Ur Barbiturates Screen Presumptive negative Ur Phencyclidine Scrn Presumptive negative Ur Amphetamines Screen Presumptive negative U Benzodiazepines Scrn Presumptive negative Urine Cocaine Screen Presumptive negative U Marijuana (THC) Screen Presumptive positive Drugs of Abuse Note Disclamer Syphilis IgG Antibody Rubella IgG Antibody Immune Blood Type Antibody Screen
[2020-09-30] MEDS ORDERED: LACTATED RINGERS 1,000 ML IV SCH ×2 (10:30→16:30)
[2020-09-30] MEDS ORDERED: ONDANSETRON 4 MG/2 ML INJ ONE (10:45)
[2020-09-30] MEDS ORDERED: KETOROLAC 30 MG/1 ML INJ ONE (10:45)
[2020-09-30] MEDS ORDERED: BUPIVACAINE/PF (0.25%) 2.5 MG/ML 30 ML VIAL INFILTRATI ONE (10:46)
[2020-09-30] MEDS ORDERED: LIDOCAINE 2%/EPINEPHRINE 1:200,000 VIAL (20 ML) INFILTRATI ONE (10:46)
[2020-09-30] MEDS ORDERED: dexAMETHasone 20 MG/5 ML VIAL ONE (10:46)
[2020-09-30] MEDS ORDERED: NALOXONE 0.4 MG/1 ML INJ IV PRN ×2 (10:47→16:23)
[2020-09-30] MEDS ORDERED: PROMETHAZINE 25 MG TAB PO PRN (10:47)
[2020-09-30] MEDS ORDERED: ONDANSETRON 4 MG/2 ML INJ IV PRN (10:47)
[2020-09-30] MEDS ORDERED: PROMETHAZINE 25 MG RECT SUPP PR PRN (10:47)
[2020-09-30] MEDS ORDERED: HYDROmorphone 1 MG/1 ML INJ IV PRN (10:47)
--- NOTE | 2020-09-30 10:47 | Anesthesia Day of Surgery ---
Anesthesia Day of Surgery - Day of Surgery Patient Examined: Yes Patient H&P Reviewed: Yes Patient is NPO: Yes Beta Blockers: No Cardiac Clearance: No Pulmonary Clearance: No Shun's Test: N/A
[2020-09-30] MEDS ORDERED: ceFAZolin/Water 2 GM/20 ML 2 GM/20 ML SYRINGE IV NR (11:00)
--- NOTE | 2020-09-30 11:22 | Progress Note ---
Assessment and Plan Diagnoses and options reviewed. Risk associated with delivery were discussed, including but not limited to, bleeding that may require blood transfusion, infection that may be life threatening, injury to adjacent organs specifically bowel or bladder that may require further surgeries, or major vascular injury. She was also informed that when she has had a delivery she may require repeat deliveries for all subsequent pregnancies. Questions were encouraged and answered, consents were reviewed and signed. Patient voiced understanding and desires to proceed with delivery. She declines sterilization at this time. - Patient Problems (1) Prolonged rupture of membranes Current Visit: Yes Status: Acute (2) Failure of descent in labor, delivered, current hospitalization Current Visit: Yes Status: Acute (3) 39 weeks gestation of Current Visit: Yes Status: Acute (4) GBS (group B Streptococcus carrier), +RV culture, currently Current Visit: Yes Status: Acute (5) Hx of cannabis abuse Current Visit: Yes Status: Acute Subjective - Subjective Date of service: 09/30/20 Principal diagnosis: IUP @ 39+5; SROM 09/29/2020 1100 Patient reports: no new complaints (comfortable with epidural) Objective - Vital Signs Vital Signs: Vital Signs - 12hr 09/29/20 09/29/20 09/29/20 23:18 23:19 23:21 Temperature Pulse Rate 90 78 67 Respiratory Rate Blood Pressure 127/62 122/60 O2 Sat by Pulse 99 Oximetry 09/29/20 09/29/20 09/29/20 23:23 23:28 23:33 Temperature Pulse Rate 66 88 72 Respiratory Rate Blood Pressure 110/55 O2 Sat by Pulse 99 99 97 Oximetry 09/29/20 09/29/20 09/29/20 23:38 23:41 23:43 Temperature 98 F Pulse Rate 66 74 87 Respiratory Rate Blood Pressure 106/53 O2 Sat by Pulse 97 96 Oximetry 09/29/20 09/29/20 09/29/20 23:48 23:53 23:56 Temperature Pulse Rate 73 68 80 Respiratory Rate Blood Pressure 95/49 O2 Sat by Pulse 96 96 Oximetry 09/29/20 09/30/20 09/30/20 23:58 00:01 00:03 Temperature Pulse Rate 70 58 L 77 Respiratory Rate Blood Pressure O2 Sat by Pulse 96 93 98 Oximetry 09/30/20 09/30/20 09/30/20 00:06 00:08 00:13 Temperature Pulse Rate 64 89 71 Respiratory Rate Blood Pressure 104/51 O2 Sat by Pulse 97 97 Oximetry 09/30/20 09/30/20 09/30/20 00:18 00:23 00:28 Temperature Pulse Rate 80 59 L 60 Respiratory Rate Blood Pressure O2 Sat by Pulse 96 97 97 Oximetry 09/30/20 09/30/20 09/30/20 00:33 00:36 00:38 Temperature Pulse Rate 63 62 77 Respiratory Rate Blood Pressure 89/44 89/42 O2 Sat by Pulse 96 98 Oximetry 09/30/20 09/30/20 09/30/20 00:43 00:44 00:48 Temperature Pulse Rate 78 100 H 63 Respiratory Rate Blood Pressure 117/61 O2 Sat by Pulse 97 98 Oximetry 09/30/20 09/30/20 09/30/20 00:53 00:58 01:03 Temperature Pulse Rate 82 83 62 Respiratory Rate Blood Pressure O2 Sat by Pulse 97 96 99 Oximetry 09/30/20 09/30/20 09/30/20 01:07 01:08 01:13 Temperature Pulse Rate 71 75 85 Respiratory Rate Blood Pressure 109/55 O2 Sat by Pulse 99 98 Oximetry 09/30/20 09/30/20 09/30/20 01:18 01:23 01:28 Temperature Pulse Rate 100 H 69 75 Respiratory Rate Blood Pressure O2 Sat by Pulse 99 99 100 Oximetry 09/30/20 09/30/20 09/30/20 01:33 01:37 01:38 Temperature Pulse Rate 71 113 H 94 H Respiratory Rate Blood Pressure 180/101 O2 Sat by Pulse 98 99 Oximetry 09/30/20 09/30/20 09/30/20 01:41 01:43 01:48 Temperature Pulse Rate 99 H 75 73 Respiratory Rate Blood Pressure 139/60 O2 Sat by Pulse 98 97 Oximetry 09/30/20 09/30/20 09/30/20 01:53 01:58 02:02 Temperature 97.8 F Pulse Rate 85 70 Respiratory 17 Rate Blood Pressure O2 Sat by Pulse 96 97 Oximetry 09/30/20 09/30/20 09/30/20 02:03 02:08 02:13 Temperature Pulse Rate 63 74 70 Respiratory Rate Blood Pressure 100/53 O2 Sat by Pulse 98 98 97 Oximetry 09/30/20 09/30/20 09/30/20 02:18 02:23 02:28 Temperature Pulse Rate 81 69 67 Respiratory Rate Blood Pressure O2 Sat by Pulse 94 97 97 Oximetry 09/30/20 09/30/20 09/30/20 02:33 02:38 02:43 Temperature Pulse Rate 67 81 66 Respiratory Rate Blood Pressure O2 Sat by Pulse 98 97 97 Oximetry 09/30/20 09/30/20 09/30/20 02:47 02:48 02:53 Temperature Pulse Rate 82 85 64 Respiratory Rate Blood Pressure O2 Sat by Pulse 94 96 97 Oximetry 09/30/20 09/30/20 09/30/20 02:58 03:03 03:08 Temperature Pulse Rate 71 71 80 Respiratory Rate Blood Pressure O2 Sat by Pulse 98 96 97 Oximetry 09/30/20 09/30/20 09/30/20 03:13 03:18 03:23 Temperature Pulse Rate 68 73 71 Respiratory Rate Blood Pressure O2 Sat by Pulse 97 97 98 Oximetry 09/30/20 09/30/20 09/30/20 03:28 03:32 03:33 Temperature Pulse Rate 71 75 62 Respiratory Rate Blood Pressure 115/68 O2 Sat by Pulse 99 99 Oximetry 09/30/20 09/30/20 09/30/20 03:38 03:42 03:43 Temperature 98.1 F Pulse Rate 63 71 Respiratory Rate Blood Pressure O2 Sat by Pulse 99 97 Oximetry 09/30/20 09/30/20 09/30/20 03:48 03:53 03:58 Temperature Pulse Rate 64 60 60 Respiratory Rate Blood Pressure O2 Sat by Pulse 98 100 99 Oximetry 09/30/20 09/30/20 09/30/20 04:03 04:08 04:13 Temperature Pulse Rate 89 71 79 Respiratory Rate Blood Pressure O2 Sat by Pulse 100 99 99 Oximetry 09/30/20 09/30/20 09/30/20 04:18 04:23 04:28 Temperature Pulse Rate 79 105 H 78 Respiratory Rate Blood Pressure O2 Sat by Pulse 99 100 97 Oximetry 09/30/20 09/30/20 09/30/20 04:33 04:38 04:43 Temperature Pulse Rate 98 H 100 H 118 H Respiratory Rate Blood Pressure O2 Sat by Pulse 98 99 99 Oximetry 09/30/20 09/30/20 09/30/20 04:48 04:53 04:58 Temperature Pulse Rate 81 126 H 72 Respiratory Rate Blood Pressure O2 Sat by Pulse 99 99 98 Oximetry 09/30/20 09/30/20 09/30/20 05:03 05:08 05:13 Temperature Pulse Rate 99 H 80 70 Respiratory Rate Blood Pressure O2 Sat by Pulse 100 99 97 Oximetry 09/30/20 09/30/20 09/30/20 05:18 05:23 05:28 Temperature Pulse Rate 72 70 64 Respiratory Rate Blood Pressure O2 Sat by Pulse 96 96 98 Oximetry 09/30/20 09/30/20 09/30/20 05:30 05:33 05:38 Temperature Pulse Rate 62 65 65 Respiratory Rate Blood Pressure 115/57 O2 Sat by Pulse 97 97 Oximetry 09/30/20 09/30/20 09/30/20 05:43 05:48 05:53 Temperature Pulse Rate 64 82 69 Respiratory Rate Blood Pressure O2 Sat by Pulse 97 98 95 Oximetry 09/30/20 09/30/20 09/30/20 05:58 06:03 06:08 Temperature Pulse Rate 64 65 65 Respiratory Rate Blood Pressure O2 Sat by Pulse 96 95 95 Oximetry 09/30/20 09/30/20 09/30/20 06:09 06:13 06:17 Temperature Pulse Rate 66 65 88 Respiratory Rate Blood Pressure O2 Sat by Pulse 94 96 94 Oximetry 09/30/20 09/30/20 09/30/20 06:18 06:23 06:28 Temperature Pulse Rate 65 63 63 Respiratory Rate Blood Pressure O2 Sat by Pulse 100 98 97 Oximetry 09/30/20 09/30/20 09/30/20 06:32 06:33 06:38 Temperature Pulse Rate 61 64 63 Respiratory Rate Blood Pressure 109/56 O2 Sat by Pulse 98 97 Oximetry 09/30/20 09/30/20 09/30/20 06:43 06:48 06:53 Temperature Pulse Rate 65 64 71 Respiratory Rate Blood Pressure O2 Sat by Pulse 98 98 97 Oximetry 09/30/20 09/30/20 09/30/20 06:58 07:03 07:08 Temperature 98 F Pulse Rate 66 61 70 Respiratory 18 Rate Blood Pressure O2 Sat by Pulse 96 98 100 Oximetry 09/30/20 09/30/20 09/30/20 07:13 07:18 07:23 Temperature Pulse Rate 74 74 70 Respiratory Rate Blood Pressure O2 Sat by Pulse 100 99 100 Oximetry 09/30/20 09/30/20 09/30/20 07:28 07:30 07:33 Temperature Pulse Rate 65 61 67 Respiratory Rate Blood Pressure 137/84 O2 Sat by Pulse 100 99 Oximetry 09/30/20 09/30/20 09/30/20 07:38 07:43 07:48 Temperature Pulse Rate 67 74 82 Respiratory Rate Blood Pressure O2 Sat by Pulse 99 97 98 Oximetry 09/30/20 09/30/20 09/30/20 07:53 07:58 08:03 Temperature Pulse Rate 82 66 69 Respiratory Rate Blood Pressure O2 Sat by Pulse 98 100 99 Oximetry 09/30/20 09/30/20 09/30/20 08:08 08:13 08:18 Temperature Pulse Rate 78 80 61 Respiratory Rate Blood Pressure O2 Sat by Pulse 98 99 100 Oximetry 09/30/20 09/30/20 09/30/20 08:23 08:28 08:31 Temperature Pulse Rate 69 63 68 Respiratory Rate Blood Pressure 140/79 O2 Sat by Pulse 99 99 Oximetry 09/30/20 09/30/20 09/30/20 08:33 08:38 08:43 Temperature Pulse Rate 65 72 72 Respiratory Rate Blood Pressure O2 Sat by Pulse 98 99 97 Oximetry 09/30/20 09/30/20 09/30/20 08:48 08:53 08:58 Temperature Pulse Rate 67 67 61 Respiratory Rate Blood Pressure O2 Sat by Pulse 98 99 100 Oximetry 09/30/20 09/30/20 09/30/20 09:03 09:08 09:13 Temperature Pulse Rate 60 59 L 66 Respiratory Rate Blood Pressure O2 Sat by Pulse 100 100 98 Oximetry 09/30/20 09/30/20 09/30/20 09:18 09:23 09:28 Temperature Pulse Rate 68 80 81 Respiratory Rate Blood Pressure O2 Sat by Pulse 99 97 97 Oximetry 09/30/20 09/30/20 09/30/20 09:30 09:33 09:38 Temperature Pulse Rate 75 68 69 Respiratory Rate Blood Pressure 130/76 O2 Sat by Pulse 100 98 Oximetry 09/30/20 09/30/20 09/30/20 09:43 09:48 09:53 Temperature 98 F Pulse Rate 65 59 L 67 Respiratory Rate Blood Pressure O2 Sat by Pulse 98 100 99 Oximetry 09/30/20 09/30/20 09/30/20 09:58 10:03 10:08 Temperature Pulse Rate 89 97 H 94 H Respiratory Rate Blood Pressure O2 Sat by Pulse 99 98 97 Oximetry 09/30/20 09/30/20 09/30/20 10:13 10:18 10:23 Temperature Pulse Rate 91 H 71 83 Respiratory Rate Blood Pressure O2 Sat by Pulse 98 99 99 Oximetry 09/30/20 09/30/20 09/30/20 10:28 10:31 10:33 Temperature Pulse Rate 104 H 95 H 111 H Respiratory Rate Blood Pressure 138/86 O2 Sat by Pulse 99 99 Oximetry 09/30/20 09/30/20 09/30/20 10:38 10:43 10:48 Temperature Pulse Rate 99 H 104 H 113 H Respiratory Rate Blood Pressure O2 Sat by Pulse 99 98 98 Oximetry 09/30/20 09/30/20 09/30/20 10:53 10:58 11:03 Temperature Pulse Rate 84 79 84 Respiratory Rate Blood Pressure O2 Sat by Pulse 96 97 98 Oximetry 09/30/20 09/30/20 11:08 11:13 Temperature Pulse Rate 98 H 70 Respiratory Rate Blood Pressure O2 Sat by Pulse 97 98 Oximetry - Labs Labs: Laboratory Results - last 24 hr 09/29/20 09/29/20 09/29/20 22:09 22:09 22:09 WBC 10.3 RBC 3.92 Hgb 11.3 Hct 34.4 MCV 88 MCH 29 MCHC 33 RDW 13.5 Plt Count 236 Urine Opiates Screen Urine Methadone Screen Ur Barbiturates Screen Ur Phencyclidine Scrn Ur Amphetamines Screen U Benzodiazepines Scrn Urine Cocaine Screen U Marijuana (THC) Screen Drugs of Abuse Note Syphilis IgG Antibody Nonreactive Rubella IgG Antibody Blood Type B POSITIVE Antibody Screen Negative 09/29/20 09/30/20 22:09 00:45 WBC RBC Hgb Hct MCV MCH MCHC RDW Plt Count Urine Opiates Screen Presumptive negative Urine Methadone Screen Presumptive negative Ur Barbiturates Screen Presumptive negative Ur Phencyclidine Scrn Presumptive negative Ur Amphetamines Screen Presumptive negative U Benzodiazepines Scrn Presumptive negative Urine Cocaine Screen Presumptive negative U Marijuana (THC) Screen Presumptive positive Drugs of Abuse Note Disclamer Syphilis IgG Antibody Rubella IgG Antibody Immune Blood Type Antibody Screen
[2020-09-30] MEDS ORDERED: ceFAZolin/STERILE WATER 2 GM/20 ML SYRINGE IV ONE (11:32)
[2020-09-30] MEDS ORDERED: PHENYLEPHRINE/NS 1,000 MCG/10 ML SYRINGE (OR USE) IV ONE (11:49)
[2020-09-30] MEDS ORDERED: OXYTOCIN 10 UNIT/1 ML INJ ONE (11:49)
[2020-09-30] MEDS ORDERED: WATER FOR IRRIG STERILE 1,500 ML BOTTLE IR ONE (11:54)
[2020-09-30] MEDS ORDERED: SODIUM CHLORIDE 0.9% IRR 1,500 ML BOTTLE IR ONE (11:54)
--- NOTE | 2020-09-30 12:42 | Operative Report ---
Operative Report Operative Report: Date of operation: 09/30/2020 Pre-operative diagnosis: 1. 39 weeks gestational age 2. Failure to descend 3. Prolonged rupture of membrane 4. BMI 31.2 kg/m 5. GBS positive 6. History of marijuana use Post-operative diagnosis: 1. 39 weeks gestational age 2. Failure to descend 3. Prolonged rupture of membrane 4. BMI 31.2 kg/m 5. GBS positive 6. History of marijuana use Procedure name(s): Primary low transverse uterine incision Surgeon: Allegra Robbins MD English Faculty Member: Ana Bhatti Anesthesia: Epidural QBL: 920 mL Urine output: 100 mL of clear urine out at the end of the procedure Fluids: 800 mL Findings: Liveborn female infant weight 6 Lbs. 10 oz. Apgars of 8 and 9 at one and 5 minutes Indications: Patient with prolonged rupture of membranes and failure of the head to descend below -3 for more than 24 hours in spite of cervical change. Patient desired to proceed with delivery. Procedure: Patient was taking to the operating room. Epidural anesthesia was bolused. Patient was then prepped and draped in the usual sterile fashion Timeout was performed. Once an appropriate level of anesthesia was noted, a Pfannenstiel incision was made and extended the fascia which was incised and extended lateral direction. The overlying fascia was sharply dissected away from the underlying rectus muscles in the superior inferior direction. The midline was entered bluntly. Bladder blade was placed. Vesicouterine fold was incised with blunt dissection bladder flap was created. A transverse incision was made in the lower uterine segment and extended superolateral direction with finger fractionation. Thin meconium fluid was noted. was delivered from the LOT cephalic position, with spontaneous cry and excellent tone. Mouth and nose bulb suctioned. Cord was doubly clamped and cut infant was given to the resuscitation team present. Placenta was delivered. The uterus was exteriorized and cleaned of any further placental tissue and products of conception. Uterine incision was approximated using 0 Vicryl in a running i nterlocking stitch followed by further suture of 0 Vicryl in imbricating fashion. When hemostasis was noted the uterus was allowed back in the pelvic cavity. Pelvis was irrigated with warm normal saline. Once hemostasis was noted the rectus muscles were approximated using 0 Vicryl interrupted simple stitches 3. Once hemostasis was noted the fascia was approximated using 0 Vicryl simple running stitch. The incision was irrigated with warm saline, once hemostasis as noted, the subcuticular adipose tissue was reapproximated using 3- 0 Vicryl in a simple running fashion. Skin was approximated using 4-0 Vicryl on a Joey needle in a subcuticular manner. Counts were correct x3. Patient tolerated the procedure well, she was taken to recovery room in stable condition.
--- NOTE | 2020-09-30 12:56 | Progress Note ---
Regional Anesthesia Block - Regional Anesthesia Block Start Time: 12:42 Stop Time: 12:50 Performed By:: TURNER ROTH (Enriqueta MARINELLI) Procedure: Patient consented for TAP block for post surgical pain management. Patient identified, monitors placed, and time out performed. Mid axillary TAP identified bilaterally via ultrasound. Skin prepped bilaterally with [chlorhexidine] and [20g stimuplex] needle advanced to the TAP. 30ml [Marcaine 0.25% with 25mcg Precedex and Decadron 5mg] injected under ultrasound guidance on the [left] side. 30ml [Marcaine 0.25% with 25mcg Precedex and Decadron 5mg] injected under ultrasound guidance on the [right] side. Negative aspiration every 5mL, Patient tolerated the procedure well. No apparent complications seen.
[2020-09-30] MEDS ORDERED: METHYLERGONOVINE MALEATE 0.2 MG/ML VIAL IM ONE ×2 (13:34→13:48)
[2020-09-30] MEDS ORDERED: miSOPROStol 200 MCG TAB ONE (13:34)
[2020-09-30] MEDS ORDERED: CARBOPROST TROMETHAMINE 250 MCG/1 ML INJ IM ONE ×2 (13:34→13:41)
[2020-09-30] MEDS ORDERED: miSOPROStol 200 MCG TAB PR ONE (13:41)
[2020-09-30] MEDS ORDERED: DIPHENOXYLATE/ATROPINE TAB PO PRN (13:41)
[2020-09-30] MEDS ORDERED: hydrALAZINE 20 MG/1 ML INJ IV ONE (14:37)
[2020-09-30] MEDS ORDERED: hydrALAZINE 20 MG/1 ML INJ ONE (14:39)
[2020-09-30] MEDS: LACTATED RINGERS 1,000 ML IV SCH (14:47)
[2020-09-30 14:56] LABS: Hematocrit 37.3 % (30.3-42.9); Hemoglobin 12.5 gm/dl (10.1-14.3); Mean Corpuscular HGB Conc 34 % (30-34); Mean Corpuscular Volume 88 fl (79-97); Platelet Count 237 K/mm3 (140-440); Red Blood Count 4.24 M/mm3 (3.65-5.03); Red Cell Distribution Width 13.7 % (13.2-15.2)
--- NOTE | 2020-09-30 15:04 | Event Note ---
Date: 09/30/20 Called to bedside to evaluate patient c/o chest pain. Upon talking to patient she said it was mild, no SOB, VSS. BP elevated to 160s systolic. Orders given for Hydralazine x2 and stat 12 lead EKG. EKG NSR, RN instructed to update me if patient condition worsens. Spoke with Dr Robbins who is getting PIH labs and keeping patient on L&D in the event she needs to be placed on mag drip.
[2020-09-30 15:14] LABS: Alanine Aminotransferase 8 units/L (7-56); Uric Acid 3.9 mg/dL (3.5-7.6)
[2020-09-30 15:55] LABS: Bilirubin,Urine NEG (Negative); Blood,Urine MOD (Negative); Color,Urine Yellow (Yellow); Protein,Urine <15 mg/dL mg/dL (Negative); Urobilinogen,Urine < 2.0 mg/dL (<2.0)
[2020-09-30] MEDS ORDERED: LANOLIN/ZINC/DIMETHICONE (LANSINOH) 7 GM TP PRN (16:23)
[2020-09-30] MEDS ORDERED: WITCH HAZEL/ GLYCERIN PAD TP PRN (16:23)
[2020-09-30] MEDS ORDERED: SENNOSIDES 8.6 MG TAB PO PRN (16:28)
[2020-09-30] MEDS ORDERED: traMADol 50 MG TAB PO PRN (16:28)
[2020-09-30] MEDS ORDERED: MAGNESIUM HYDROXIDE (MOM) ORAL LIQD UDC PO PRN (16:28)
[2020-09-30] MEDS ORDERED: ACETAMINOPHEN 325 MG TAB PO SCH (16:41)
[2020-09-30] MEDS: MAGNESIUM SULFATE 40GM/1000ML 40 GM/1,000 ML BAG IV SCH (16:55)
[2020-09-30] MEDS ORDERED: MAGNESIUM SULFATE 4 GM/100 ML BAG IV ONE (17:00)
[2020-09-30] MEDS ORDERED: OXYTOCIN DRIP 30 UNITS/500 ML BAG IV SCH (17:00)
[2020-09-30] MEDS: ACETAMINOPHEN 500 MG TAB PO SCH ×2 (17:08→22:09)
[2020-09-30] MEDS ORDERED: METHYLERGONOVINE 0.2 MG TABLET PO SCH (18:00)
[2020-09-30] MEDS: KETOROLAC 30 MG/1 ML INJ IV SCH (19:21)
[2020-09-30] MEDS: ceFAZolin/NS 1 GM/50 ML 1 GM/50 ML BAG IV SCH (20:09)
[2020-09-30] MEDS ORDERED: ZOLPIDEM 5 MG TAB PO ONE (22:30)
[2020-10-01 00:35] LABS: Hematocrit 31.1 % (30.3-42.9); Hemoglobin 10.2 gm/dl (10.1-14.3)
[2020-10-01] MEDS: KETOROLAC 30 MG/1 ML INJ IV SCH ×3 (01:30→14:01)
[2020-10-01] MEDS: ceFAZolin/NS 1 GM/50 ML 1 GM/50 ML BAG IV SCH (04:07)
[2020-10-01] MEDS: ACETAMINOPHEN 500 MG TAB PO SCH ×2 (04:35→11:06)
[2020-10-01] MEDS ORDERED: TETANUS,DIPH,PERTUSS(ACELL) VACCINE 0.5 ML SYRINGE IM ONE (06:00)
--- NOTE | 2020-10-01 06:39 | Progress Note ---
Assessment and Plan Pt is 18hr s/p primary section. PP elevated BP MGSO4 X 24h Labetalol 200mg po BID Will adv diet and activity as tolerated Dr Vick aware - Patient Problems (1) Pre-eclampsia, Onset Date: ~10/01/20 Current Visit: Yes Status: Acute Plan to address problem: Pt resting No c/o voiced Asking to have food. BP 130-115/60-50. Will continue MGSO4 until 1600. Then transfer to . Continue labetalol 200mg po BID (2) delivery delivered Onset Date: ~09/30/20 Current Visit: Yes Status: Acute Plan to address problem: Dressing D&I Continue PP pathway Advance diet and activity as tolerated (3) H/O trichomonal vaginitis Onset Date: ~10/01/20 Current Visit: Yes Status: Acute Plan to address problem: Flagyl po single dose treatment ordered Subjective - Subjective Date of service: 10/01/20 ("I need food.") Principal diagnosis: Day #1 s/p primary c/s; PreE MGSO4 X 24hr Patient reports: pain well controlled : doing well, in NICU (due to pt being alone in LDR) Objective - Vital Signs Latest vital signs: Vital Signs Temp Pulse Resp BP Pulse Ox 10/01/20 06:36 88 96 10/01/20 06:31 86 96 10/01/20 06:27 84 106/53 10/01/20 06:26 85 95 10/01/20 06:21 87 95 10/01/20 06:16 84 95 10/01/20 06:11 85 96 10/01/20 06:07 88 94 10/01/20 06:06 84 95 10/01/20 06:01 91 H 95 10/01/20 05:57 86 111/52 10/01/20 05:56 98 H 94 10/01/20 05:51 87 95 10/01/20 05:46 87 96 10/01/20 05:41 87 96 10/01/20 05:36 85 99 10/01/20 05:31 103 H 98 10/01/20 05:27 94 H 120/58 10/01/20 05:26 87 96 10/01/20 05:21 90 95 10/01/20 05:18 101 H 94 10/01/20 05:16 88 96 10/01/20 05:11 106 H 96 10/01/20 05:06 91 H 95 10/01/20 05:01 92 H 95 10/01/20 04:57 93 H 130/58 10/01/20 04:56 94 H 96 10/01/20 04:51 91 H 96 10/01/20 04:46 94 H 97 10/01/20 04:41 91 H 97 10/01/20 04:36 87 98 10/01/20 04:31 73 98 10/01/20 04:27 90 135/69 10/01/20 04:26 99 H 97 10/01/20 04:21 79 98 10/01/20 04:16 89 99 10/01/20 04:11 82 100 10/01/20 04:06 93 H 98 10/01/20 04:01 87 97 10/01/20 03:58 94 H 107/56 10/01/20 03:56 87 96 10/01/20 03:51 87 97 10/01/20 03:46 95 H 97 10/01/20 03:41 89 98 10/01/20 03:36 71 99 10/01/20 03:31 87 99 10/01/20 03:27 96 H 141/67 10/01/20 03:26 83 98 10/01/20 03:21 81 98 10/01/20 03:16 90 97 10/01/20 03:11 82 99 10/01/20 03:06 101 H 97 10/01/20 03:01 85 97 10/01/20 02:57 85 119/63 10/01/20 02:56 80 97 10/01/20 02:51 81 98 10/01/20 02:46 86 98 10/01/20 02:41 85 98 10/01/20 02:36 77 98 10/01/20 02:34 85 128/63 10/01/20 02:31 84 97 10/01/20 02:26 92 H 97 10/01/20 02:21 87 98 10/01/20 02:16 89 98 10/01/20 02:11 87 99 10/01/20 02:06 90 99 10/01/20 02:01 95 H 98 10/01/20 01:57 95 H 132/77 10/01/20 01:56 89 98 10/01/20 01:51 87 98 10/01/20 01:48 97.9 F 20 10/01/20 01:47 95 H 0 L 10/01/20 01:46 91 H 97 10/01/20 01:41 96 H 98 10/01/20 01:36 96 H 97 10/01/20 01:31 94 H 98 10/01/20 01:27 91 H 111/53 10/01/20 01:26 90 95 10/01/20 01:21 91 H 95 10/01/20 01:16 90 95 10/01/20 01:11 91 H 96 10/01/20 01:06 86 96 10/01/20 01:01 85 95 10/01/20 00:57 88 116/57 10/01/20 00:56 88 96 10/01/20 00:51 90 96 10/01/20 00:46 92 H 98 10/01/20 00:41 89 97 10/01/20 00:36 91 H 97 10/01/20 00:31 99 H 96 10/01/20 00:27 91 H 126/59 10/01/20 00:26 89 97 10/01/20 00:21 94 H 96 10/01/20 00:16 111 H 95 10/01/20 00:11 91 H 96 10/01/20 00:06 97 H 96 10/01/20 00:01 97 H 97 09/30/20 23:57 94 H 115/58 09/30/20 23:56 96 H 97 09/30/20 23:51 92 H 97 09/30/20 23:46 101 H 98 09/30/20 23:41 42 L 95 09/30/20 23:36 94 H 97 09/30/20 23:31 91 H 96 09/30/20 23:27 111 H 119/55 09/30/20 23:26 96 H 95 09/30/20 23:21 94 H 95 09/30/20 23:16 94 H 95 09/30/20 23:11 90 96 09/30/20 23:06 94 H 97 09/30/20 23:01 85 97 09/30/20 22:58 83 149/74 09/30/20 22:56 78 97 09/30/20 22:51 83 99 09/30/20 22:46 85 99 06/06/21 22:41 90 99 09/30/20 22:36 96 H 97 09/30/20 22:31 86 97 09/30/20 22:27 88 147/92 09/30/20 22:26 94 H 98 09/30/20 22:21 91 H 98 09/30/20 22:16 98 H 100 09/30/20 22:11 102 H 98 09/30/20 22:08 94 H 137/86 09/30/20 22:06 89 98 09/30/20 22:01 88 99 09/30/20 21:57 100 H 137/86 09/30/20 21:56 98 H 99 09/30/20 21:51 98 H 99 09/30/20 21:46 96 H 98 09/30/20 21:41 91 H 98 09/30/20 21:36 92 H 98 09/30/20 21:31 87 98 09/30/20 21:27 83 140/66 09/30/20 21:26 99 H 98 09/30/20 21:21 88 98 09/30/20 21:16 90 98 09/30/20 21:11 86 98 09/30/20 21:06 85 98 09/30/20 21:01 101 H 96 09/30/20 20:58 98 H 154/72 09/30/20 20:56 104 H 97 09/30/20 20:51 115 H 99 09/30/20 20:46 106 H 98 09/30/20 20:41 109 H 99 09/30/20 20:36 103 H 99 09/30/20 20:31 99 H 98 09/30/20 20:28 84 143/90 09/30/20 20:26 86 98 09/30/20 20:21 84 100 09/30/20 20:16 95 H 99 09/30/20 20:11 76 98 09/30/20 20:06 87 98 09/30/20 20:01 81 99 09/30/20 20:00 20 99 09/30/20 19:57 82 160/89 09/30/20 19:56 92 H 99 09/30/20 19:51 89 98 09/30/20 19:46 101 H 99 09/30/20 19:41 94 H 98 09/30/20 19:35 76 99 09/30/20 19:32 97.1 F L 20 99 09/30/20 19:30 85 99 09/30/20 19:27 75 151/79 09/30/20 19:26 96 H 167/117 09/30/20 19:25 90 99 09/30/20 19:20 88 99 09/30/20 19:15 91 H 99 09/30/20 19:10 98 H 159/88 99 09/30/20 19:05 79 99 09/30/20 19:00 91 H 100 09/30/20 18:55 80 138/85 98 09/30/20 18:50 77 99 09/30/20 18:45 86 100 09/30/20 18:40 79 154/89 99 09/30/20 18:35 78 99 09/30/20 18:30 76 99 09/30/20 18:25 73 155/90 100 09/30/20 18:20 82 100 09/30/20 18:15 77 100 09/30/20 18:10 79 167/93 99 09/30/20 18:05 80 99 09/30/20 18:03 81 159/95 09/30/20 18:00 80 98 09/30/20 17:55 88 99 09/30/20 17:50 76 99 09/30/20 17:45 84 99 09/30/20 17:40 87 100 09/30/20 17:35 83 99 09/30/20 17:30 83 100 09/30/20 17:26 76 148/87 09/30/20 17:25 97 09/30/20 17:20 88 100 09/30/20 17:15 83 99 09/30/20 17:10 87 144/90 99 09/30/20 17:05 73 99 09/30/20 17:00 79 98 09/30/20 16:55 81 141/85 98 09/30/20 16:50 85 144/83 98 09/30/20 16:45 84 99 09/30/20 16:40 84 150/96 98 09/30/20 16:35 84 98 09/30/20 16:30 79 100 09/30/20 16:25 87 147/98 99 09/30/20 16:20 80 100 09/30/20 16:19 88 150/99 09/30/20 16:15 85 100 09/30/20 16:11 86 150/99 09/30/20 16:10 83 100 09/30/20 16:05 91 H 100 09/30/20 16:00 89 99 09/30/20 15:55 85 171/93 100 09/30/20 15:50 80 99 09/30/20 15:45 89 100 09/30/20 15:40 75 161/89 100 09/30/20 15:35 79 100 09/30/20 15:30 80 99 09/30/20 15:26 82 164/91 09/30/20 15:25 83 98 09/30/20 15:00 75 13 156/94 100 09/30/20 14:45 98 F 83 18 165/94 100 09/30/20 14:41 70 166/99 09/30/20 14:29 72 18 165/102 100 09/30/20 14:15 61 143/84 100 09/30/20 14:00 97.4 F L 58 L 17 127/70 100 09/30/20 13:45 75 123/62 100 09/30/20 13:30 97.7 F 61 14 121/62 99 09/30/20 13:15 97.8 F 62 12 121/58 100 09/30/20 12:55 62 13 113/72 97 09/30/20 12:50 62 11 L 115/49 99 09/30/20 12:40 97.9 F 66 14 105/44 98 09/30/20 11:18 105 H 98 09/30/20 11:13 70 98 09/30/20 11:08 98 H 97 09/30/20 11:03 84 98 09/30/20 10:58 79 97 09/30/20 10:53 84 96 09/30/20 10:48 113 H 98 09/30/20 10:43 104 H 98 09/30/20 10:38 99 H 99 09/30/20 10:33 111 H 99 09/30/20 10:31 95 H 138/86 09/30/20 10:28 104 H 99 09/30/20 10:23 83 99 09/30/20 10:18 71 99 09/30/20 10:13 91 H 98 09/30/20 10:08 94 H 97 09/30/20 10:03 97 H 98 09/30/20 09:58 89 99 09/30/20 09:53 67 99 09/30/20 09:48 98 F 59 L 100 09/30/20 09:43 65 98 09/30/20 09:38 69 98 09/30/20 09:33 68 100 09/30/20 09:30 75 130/76 09/30/20 09:28 81 97 09/30/20 09:23 80 97 09/30/20 09:18 68 99 09/30/20 09:13 66 98 09/30/20 09:08 59 L 100 09/30/20 09:03 60 100 09/30/20 08:58 61 100 09/30/20 08:53 67 99 09/30/20 08:48 67 98 09/30/20 08:43 72 97 09/30/20 08:38 72 99 09/30/20 08:33 65 98 09/30/20 08:31 68 140/79 09/30/20 08:28 63 99 09/30/20 08:23 69 99 09/30/20 08:18 61 100 09/30/20 08:13 80 99 09/30/20 08:08 78 98 09/30/20 08:03 69 99 09/30/20 07:58 66 100 09/30/20 07:53 82 98 09/30/20 07:48 82 98 09/30/20 07:43 74 97 09/30/20 07:38 67 99 09/30/20 07:33 67 99 09/30/20 07:30 61 137/84 09/30/20 07:28 65 100 09/30/20 07:23 70 100 09/30/20 07:18 74 99 09/30/20 07:13 74 100 09/30/20 07:08 98 F 70 18 100 09/30/20 07:03 61 98 09/30/20 06:58 66 96 09/30/20 06:53 71 97 09/30/20 06:48 64 98 09/30/20 06:43 65 98 Intake and Output 09/30/20 09/30/20 10/01/20 14:59 22:59 06:59 Intake Total 2083.4 50 Output Total 500 7545 2500 Balance 1583.4 -2725 -2500 Intake: IV 2083.4 50 ANCEF/NS 1 GM/50 ML 1 gm 50 In 50 ml @ 100 mls/hr IV Q8H [facility] Rx#:[id number] PITOCin/NS 30 UNIT/500ML 83.4 30 units In 500 ml @ 2 mls/hr IV TITR [facility] Rx#: [id number] Output: Urine 500 2775 2500 Indwelling Catheter 400 2550 2500 Other: Total, Output Amount 400 350 400 Estimated Blood Loss 920 - Exam Breasts: Present: normal Cardiovascular: Present: Regular rate Lungs: Present: Clear to auscultation Abdomen: Present: normal appearance, soft, normal bowel sounds Uterus: Present: normal, fundal height below umbilicus Extremities: Present: normal Deep Tendon Reflex Grade: Normal +2 Incision: Present: normal, dry, intact - Labs Labs: Abnormal lab results 09/30/20 09/30/20 10/01/20 Range/Units 14:35 14:35 00:19 WBC 16.3 H (4.5-11.0) K/mm3 Magnesium 4.60 H (1.7-2.3) mg/dL Lactate Dehydrogenase 304 H (91-180) units/L
[2020-10-01] MEDS ORDERED: metroNIDAZOLE 500 MG TAB PO NR (08:00)
[2020-10-01] MEDS: PRENATAL VIT27-FE FUMARATE-FOLIC ACID VIT TAB PO SCH (09:42)
[2020-10-01] MEDS: oxyCODONE /ACETAMINOPHEN 5-325MG TAB PO PRN ×2 (09:43→18:43)
--- NOTE | 2020-10-01 10:39 | Electrocardiograph Report ---
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
[2020-10-01] MEDS: IBUPROFEN 800 MG TAB PO SCH (14:09)
[2020-10-01] MEDS: MAGNESIUM SULFATE 40GM/1000ML 40 GM/1,000 ML BAG IV SCH (15:12)
[2020-10-01] MEDS ORDERED: IBUPROFEN 600 MG TAB PO PRN (16:28)
[2020-10-01] MEDS ORDERED: IBUPROFEN 800 MG TAB PO PRN (16:28)
--- NOTE | 2020-10-01 19:15 | Post Anesthesia Evaluation ---
- Post Anesthesia Evaluation Patient Participated: Yes Airway Patent: Yes Stable Respiratory Function: Yes Nausea/Vomiting: No Temp > 96.8F: Yes Pain Manageable: Yes Adequeate Hydration: Yes Anesthesia Complications: No Block Receding Appropriately: Yes
[2020-10-01] MEDS ORDERED: NICOTINE 21 MG/24 HR PATCH TD SCH (22:00)
[2020-10-02] MEDS: oxyCODONE /ACETAMINOPHEN 5-325MG TAB PO PRN ×2 (04:07→09:28)
[2020-10-02] MEDS: IBUPROFEN 800 MG TAB PO SCH (05:22)
--- NOTE | 2020-10-02 08:24 | Discharge Summary ---
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 [CONS] Routine Reason For Exam: Primary care physician: BOWEN MARTIN Hospitalization Reason for admission: SROM Condition: Good Pertinent studies: postop H&H 10.2/31.1 Procedures: primary c/s Hospital course: uncomplicated c/s, postop course complicated by elevated b/p Disposition: DC-01 TO HOME OR SELFCARE Final Discharge Diagnosis (Prints w/discharge instructions): Time spent for discharge: 30 - Discharge Diagnoses (1) Hx of cannabis abuse Status: Acute (2) delivery delivered Status: Acute Core Measure Documentation - Palliative Care Palliative Care/ Comfort Measures: Not Applicable - Core Measures Any of the following diagnoses?: none Exam - Constitutional Vitals: Temp Pulse Resp BP Pulse Ox 98 F 73 18 126/68 98 10/02/20 00:15 10/02/20 00:15 10/02/20 00:15 10/02/20 00:15 10/02/20 00:15 General appearance: Present: no acute distress, well-nourished - EENT Eyes: Present: PERRL ENT: hearing intact, clear oral mucosa - Neck Neck: Present: supple, normal ROM - Respiratory Respiratory effort: normal Respiratory: bilateral: CTA - Cardiovascular Rhythm: regular - Extremities Extremities: No edema - Abdominal General gastrointestinal: Present: soft, non-tender, non-distended, normal bowel sounds Female genitourinary: Present: normal - Integumentary Integumentary: Present: clear, warm, dry - Musculoskeletal Musculoskeletal: gait normal, strength equal bilaterally - Psychiatric Psychiatric: appropriate mood/affect, intact judgment & insight - Neurologic Neurologic: CNII-XII intact, moves all extremities - Additional findings Additional findings: incision D&I, lochia scant, fundus firm, bottle feeding Plan Activity: advance as tolerated Diet: regular Wound: open to air, keep clean and dry Follow up with: BOWEN MARTIN MD [Primary Care Provider] - 7 Days (Congratulations! Please call [phone] to schedule your incision check in 1 week. Call for any complaints of headache, upper abdominal pain or changes in your vision. ) Prescriptions: labetaloL [Labetalol 200mg TAB] 200 mg PO BID #60 tablet Ibuprofen [Motrin 800 MG tab] 800 mg PO TID PRN #30 tablet PRN Reason: Pain oxyCODONE /ACETAMINOPHEN [Percocet 5/325 mg] 1 - 2 tab PO Q6HR PRN #14 tablet PRN Reason: Pain
[2020-10-02 08:43] VITALS: BP 144/84
[2020-10-02] MEDS: PRENATAL VIT27-FE FUMARATE-FOLIC ACID VIT TAB PO SCH (09:28)
== END 2020-10-02 13:30 | disposition home or self-care (01) | DRG 766 ==
LOC: TRG 19:03 → APU 19:04 → LD 19:33 → TRG 19:33 → OB 10-01 17:58
PROVIDERS: ADMIT Obstetrics & Gynecology; ATTEND Obstetrics & Gynecology
PROC: 10D00Z1 Extraction of Products of Conception, Low, Open Approach (ICD-10-PCS; principal; 2020-09-30)
PROC: 10H07YZ Insertion of Other Device into Products of Conception, Via Natural or Artificial Opening (ICD-10-PCS; 2020-09-30)
PROC: 3E0234Z Introduction of Serum, Toxoid and Vaccine into Muscle, Percutaneous Approach (ICD-10-PCS; 2020-10-01)
DX: O99.324 Drug use complicating childbirth (principal); O99.334 Smoking (tobacco) complicating childbirth; Z3A.39 39 weeks gestation of pregnancy; Z37.0 Single live birth; F17.210 Nicotine dependence, cigarettes, uncomplicated; Z71.6 Tobacco abuse counseling; Z91.013 Allergy to seafood; O62.1 Secondary uterine inertia; O14.94 Unspecified pre-eclampsia, complicating childbirth; Z20.822 Contact with and (suspected) exposure to COVID-19; F12.90 Cannabis use, unspecified, uncomplicated; Z82.49 Family history of ischemic heart disease and other diseases of the circulatory system; O99.824 Streptococcus B carrier state complicating childbirth; Z23 Encounter for immunization
CPT/HCPCS: 36415; 59025; 80307; 81001; 82565; 83615; 83735; 84450; 84460; 84550; 85014; 85018; 85027; 86592; 86762; 86850; 86900; 86901; 93005; G0378; J0290; J0360; J0690; J1100; J1170; J1885; J2210; J2370; J2405; J2590; J2765; J3475; J7120; U0003